=== PATIENT | female | born 1965 | race Caucasian/White ===

== ENCOUNTER 2016-06-24 21:57 | Emergency (ER) | payer SELFPAY ==
[~2016-06-24] VITALS: Ht 162.6 cm; Wt 77.1 kg
[2016-06-24 23:25] LABS: Albumin 3.6 g/dL (3.4-5.0); Anion Gap 5 (5-15); Aspartate Aminotransferase 17 U/L (15-37); BUN/Creatinine Ratio 22.8; Blood Urea Nitrogen 18 mg/dL (7-18); Calcium 8.4 mg/dL (8.5-10.1); Carbon Dioxide 28 mmol/L (21-32); Chloride 104 mmol/L (98-107); GFR African American 99 mL/min; GFR Non-African American 82 mL/min; Glucose 98 mg/dL (74-106); Potassium 4.1 mmol/L (3.5-5.1); Sodium 137 mmol/L (136-145)
[2016-06-24 23:30] LABS: Alkaline Phosphatase 66 U/L (45-117); Bilirubin, Total 0.2 mg/dL (0.2-1.0); Total Protein 7.2 g/dL (6.4-8.2)
[2016-06-24 23:45] LABS: Basophils # (auto) 0.1 uL; Basophils % (auto) 0.7 % (0.0-2.0); Eosinophils # (auto) 0.4 uL; Eosinophils % (auto) 3.2 % (0.0-7.0); Hematocrit 43.6 % (36.0-46.0); Hemoglobin 14.5 g/dL (12.2-16.2); Lymphocytes # (auto) 3.2 uL; Lymphocytes % (auto) 26.1 % (10.0-50.0); Mean Corpuscular Hemoglobin 30.9 pg (28.0-32.0); Mean Corpuscular Hgb Conc. 33.2 g/dL (32.0-36.0); Mean Corpuscular Volume 93.1 fL (80.0-100.0); Mean Platelet Volume 9.7 fL (7.4-10.4); Monocytes # (auto) 0.8 uL; Monocytes % (auto) 6.3 % (0.0-12.0); Neutrophils # (auto) 7.8 uL; Neutrophils % (auto) 63.7 % (37.0-80.0); Platelet Count (auto) 350 10^3/uL (140-450); Red Cell Distribution Width 13.6 % (11.6-16.0); White Blood Cell 12.3 10^3/uL (4.4-10.8)
[2016-06-25 02:30] LABS: Urine Bilirubin Negative (Negative); Urine Color Yellow (Yellow); Urine Glucose Normal (Normal); Urine Hyaline Cast FEW /lpf (0 - 2); Urine Ketone Negative (Negative); Urine Mucus FEW (None Seen); Urine Nitrite Negative (Negative); Urine RBC 15 /hpf (0 - 4); Urine Squamous Epithelial Cell MOD /hpf (<5); Urine Urobilinogen Normal (Negative)
[2016-06-25 02:33] LABS: Urine Blood 2+ /uL (Negative)
[2016-06-25 04:18] VITALS: BP 152/88
== END 2016-06-25 09:09 | disposition home or self-care (01) ==
LOC: ER 22:00
DX: K64.9 Unspecified hemorrhoids (principal); N39.0 Urinary tract infection, site not specified; I10 Essential (primary) hypertension; M19.90 Unspecified osteoarthritis, unspecified site; F17.210 Nicotine dependence, cigarettes, uncomplicated; R05 Cough; R07.9 Chest pain, unspecified; Z90.49 Acquired absence of other specified parts of digestive tract
CPT/HCPCS: 36415; 80053; 81001; 81025; 84484; 85025; 93005

== ENCOUNTER 2016-09-03 10:38 | Observation (INO) | payer SELFPAY ==
[~2016-09-03] VITALS: Ht 162.6 cm; Wt 81.6 kg
[2016-09-03] MEDS ORDERED: SODIUM CHLORIDE 0.9% 1,000 ML IVB ONE (11:09)
[2016-09-03 11:44] LABS: Basophils # (auto) 0.1 uL; Basophils % (auto) 0.7 % (0.0-2.0); CONDITION Y; Eosinophils # (auto) 0.4 uL; Eosinophils % (auto) 3.7 % (0.0-7.0); Hematocrit 41.9 % (36.0-46.0); Hemoglobin 14.3 g/dL (12.2-16.2); Lymphocytes # (auto) 2.2 uL; Lymphocytes % (auto) 20.6 % (10.0-50.0); Mean Corpuscular Hemoglobin 31.9 pg (28.0-32.0); Mean Corpuscular Hgb Conc. 34.2 g/dL (32.0-36.0); Mean Corpuscular Volume 93.1 fL (80.0-100.0); Mean Platelet Volume 8.9 fL (7.4-10.4); Monocytes # (auto) 0.9 uL; Monocytes % (auto) 8.1 % (0.0-12.0); Neutrophils # (auto) 7.2 uL; Neutrophils % (auto) 66.9 % (37.0-80.0); Platelet Count (auto) 316 10^3/uL (140-450); Red Cell Distribution Width 13.5 % (11.6-16.0); White Blood Cell 10.8 10^3/uL (4.4-10.8)
[2016-09-03 11:58] LABS: INR 0.92 (0.9-1.15); Partial Thromboplastin Time 26.9 sec (22.64-33.71)
[2016-09-03 12:11] LABS: Albumin 3.1 g/dL (3.4-5.0); BUN/Creatinine Ratio 24.1; Bilirubin, Total 0.4 mg/dL (0.2-1.0); Calcium 8.2 mg/dL (8.5-10.1); Magnesium 2.1 mg/dL (1.6-2.6); Potassium 3.7 mmol/L (3.5-5.1); Total Protein 6.3 g/dL (6.4-8.2)
[2016-09-03 12:46] LABS: Urine Bilirubin Negative (Negative); Urine Blood Negative /uL (Negative); Urine Color Yellow (Yellow); Urine Glucose Normal (Normal); Urine Ketone Negative (Negative); Urine Mucus FEW (None Seen); Urine RBC 11 /hpf (0 - 4); Urine Squamous Epithelial Cell FEW /hpf (<5); Urine Urobilinogen Normal (Negative); Urine pH 5.5 (5.0-8.0)
[2016-09-03 12:48] LABS: Urine Nitrite POSITIVE (Negative)
[2016-09-03] MEDS ORDERED: cefTRIAXone 1GM/50ML D5W 50 ML IV ONE (13:00)
[2016-09-03] MEDS ORDERED: KETOROLAC TROMETH 30 MG/ML 1ML VIAL IV ONE (13:00)
[2016-09-03 15:14] VITALS: BP 106/60
== END 2016-09-03 15:57 | disposition home or self-care (01) | DRG 690 ==
LOC: ER 10:38 → OVERFLOW 11:10 → ER 15:57
PROVIDERS: ADMIT Family Medicine; ATTEND Family Medicine
DX: N39.0 Urinary tract infection, site not specified (principal); M79.1 Myalgia; R42 Dizziness and giddiness; F41.9 Anxiety disorder, unspecified; F17.210 Nicotine dependence, cigarettes, uncomplicated
CPT/HCPCS: 36415; 70450; 71010; 80053; 80307; 81001; 82962; 83605; 83735; 84484; 85025; 85610; 85730; 87040; 93005; 96361; 96365; 96375; 99285; G0378; J0696; J1885; J7030

== ENCOUNTER 2018-01-11 06:07 | Emergency (ER) | payer MEDICAID, OTHER ==
[~2018-01-11] VITALS: Ht 162.6 cm; Wt 77.1 kg
[2018-01-11 06:09] VITALS: BP 143/95
[2018-01-11] MEDS ORDERED: KETOROLAC TROMETH 60MG/2ML VIAL IM ONE (07:30)
== END 2018-01-11 07:34 | disposition home or self-care (01) ==
LOC: ER 06:07
DX: K04.7 Periapical abscess without sinus (principal); F17.210 Nicotine dependence, cigarettes, uncomplicated
CPT/HCPCS: 96372; 99283; J1885

== ENCOUNTER 2018-01-27 06:38 | Emergency (ER) | payer MEDICAID ==
[~2018-01-27] VITALS: Ht 162.6 cm; Wt 77.1 kg
[2018-01-27 07:17] LABS: Basophils # (auto) 0.1 uL; Basophils % (auto) 1.2 % (0.0-2.0); Eosinophils # (auto) 0.3 uL; Eosinophils % (auto) 4.4 % (0.0-7.0); Hematocrit 39.7 % (36.0-46.0); Hemoglobin 13.4 g/dL (12.2-16.2); Lymphocytes % (auto) 26.9 % (10.0-50.0); Mean Corpuscular Hemoglobin 31.4 pg (28.0-32.0); Mean Corpuscular Hgb Conc. 33.9 g/dL (32.0-36.0); Mean Corpuscular Volume 92.8 fL (80.0-100.0); Monocytes # (auto) 0.7 uL; Monocytes % (auto) 9.2 % (0.0-12.0); Neutrophils # (auto) 4.3 uL; Neutrophils % (auto) 58.3 % (37.0-80.0); Platelet Count (auto) 273 10^3/uL (140-450); Red Blood Cells 4.28 10^6/uL (4.0-5.20); Red Cell Distribution Width 13.1 % (11.8-14.3); White Blood Cell 7.4 10^3/uL (4.4-10.8)
[2018-01-27 07:33] LABS: Alanine Aminotransferase 27 U/L (13-56); Albumin 3.1 g/dL (3.4-5.0); Anion Gap 7 (5-15); Aspartate Aminotransferase 14 U/L (15-37); BUN/Creatinine Ratio 17.4; Blood Urea Nitrogen 15 mg/dL (7-18); Calcium 8.3 mg/dL (8.5-10.1); Carbon Dioxide 24 mmol/L (21-32); Chloride 107 mmol/L (98-107); GFR African American 89 mL/min; GFR Non-African American 73 mL/min; Glucose 112 mg/dL (74-106); Magnesium 2.1 mg/dL (1.6-2.6); Potassium 3.9 mmol/L (3.5-5.1); Sodium 138 mmol/L (136-145)
[2018-01-27 07:38] LABS: Alkaline Phosphatase 69 U/L (45-117); Bilirubin, Total 0.3 mg/dL (0.2-1.0); Total Protein 6.6 g/dL (6.4-8.2)
[2018-01-27 07:55] LABS: INR 0.88 (0.9-1.15); Partial Thromboplastin Time 25.9 sec (23.78-33.04); Prothrombin Time 9.5 sec (9.27-12.13)
[2018-01-27 10:05] VITALS: BP 137/89
== END 2018-01-27 10:05 | disposition home or self-care (01) ==
LOC: ER 06:38
DX: M79.18 Myalgia, other site (principal); M79.602 Pain in left arm; F17.210 Nicotine dependence, cigarettes, uncomplicated; R42 Dizziness and giddiness; R11.0 Nausea
CPT/HCPCS: 36415; 72125; 80053; 83735; 83880; 84443; 84484; 84702; 85025; 85379; 85610; 85730; 93005

== ENCOUNTER 2018-04-27 22:08 | Emergency (ER) | payer MEDICAID ==
[~2018-04-27] VITALS: Ht 162.6 cm; Wt 77.1 kg
[2018-04-28] VITALS: BP 171/90
[2018-04-28] MEDS ORDERED: TETANUS-DIPTH-ACEL PERTUSSIS 0.5ML SYRG IM ONE (00:30)
[2018-04-28] MEDS ORDERED: HYDROcodone-ACET 7.5/325MG TAB PO ONE (00:30)
[2018-04-28] MEDS ORDERED: cefTRIAXone SOD 1,000 MG VL IM ONE (00:30)
== END 2018-04-28 01:14 | disposition home or self-care (01) ==
LOC: ER 22:08
DX: S60.032A Contusion of left middle finger without damage to nail, initial encounter (principal); A35 Other tetanus; F17.210 Nicotine dependence, cigarettes, uncomplicated; W22.8XXA Striking against or struck by other objects, initial encounter; Y93.89 Activity, other specified; Y92.091 Bathroom in other non-institutional residence as the place of occurrence of the external cause; Y99.8 Other external cause status
CPT/HCPCS: 29130; 73140; 90471; 90715; 96372; 99283; J0696

== ENCOUNTER 2018-05-17 15:12 | Emergency (ER) | payer MEDICAID ==
[~2018-05-17] VITALS: Ht 162.6 cm; Wt 79.4 kg
[2018-05-17 15:21] VITALS: BP 136/87
[2018-05-17] MEDS ORDERED: ASPirin 81 mg TAB PO ONE (15:30)
[2018-05-17 16:07] LABS: Alanine Aminotransferase 26 U/L (13-56); Albumin 3.5 g/dL (3.4-5.0); Aspartate Aminotransferase 15 U/L (15-37); Blood Urea Nitrogen 13 mg/dL (7-18); Calcium 8.3 mg/dL (8.5-10.1); Carbon Dioxide 26 mmol/L (21-32); GFR African American 95 mL/min; GFR Non-African American 79 mL/min; Glucose 106 mg/dL (74-106)
[2018-05-17 16:10] LABS: Anion Gap 6 (5-15); Basophils # (auto) 0.1 uL; Bilirubin, Total 0.2 mg/dL (0.2-1.0); Chloride 109 mmol/L (98-107); Eosinophils # (auto) 0.1 uL; Eosinophils % (auto) 1.3 % (0.0-7.0); Hematocrit 42.9 % (36.0-46.0); Hemoglobin 14.5 g/dL (12.2-16.2); Lymphocytes # (auto) 1.1 uL; Mean Corpuscular Hemoglobin 31.2 pg (28.0-32.0); Mean Corpuscular Hgb Conc. 33.9 g/dL (32.0-36.0); Monocytes # (auto) 0.8 uL; Monocytes % (auto) 12.6 % (0.0-12.0); Neutrophils # (auto) 4.3 uL; Neutrophils % (auto) 67.1 % (37.0-80.0); Nucleated Red Blood Cells % 0.1 %; Platelet Count (auto) 247 10^3/uL (140-450); Potassium 3.8 mmol/L (3.5-5.1); Red Blood Cells 4.66 10^6/uL (4.0-5.20); Red Cell Distribution Width 12.9 % (11.8-14.3); Sodium 141 mmol/L (136-145); Total Protein 7.2 g/dL (6.4-8.2); White Blood Cell 6.4 10^3/uL (4.4-10.8)
[2018-05-17 16:12] LABS: Alkaline Phosphatase 73 U/L (45-117)
== END 2018-05-17 17:14 | disposition home or self-care (01) ==
LOC: ER 15:14
DX: J20.9 Acute bronchitis, unspecified (principal); R07.89 Other chest pain; M06.9 Rheumatoid arthritis, unspecified; Z90.49 Acquired absence of other specified parts of digestive tract; Z98.51 Tubal ligation status
CPT/HCPCS: 36415; 71046; 80053; 83735; 84484; 85025; 93005

== ENCOUNTER 2018-07-23 02:34 | Emergency (ER) | payer MEDICAID ==
[~2018-07-23] VITALS: Ht 162.6 cm; Wt 81.6 kg
[2018-07-23 02:41] VITALS: BP 152/100
== END 2018-07-23 04:17 | disposition left against medical advice (07) ==
LOC: ER 02:36
DX: K08.89 Other specified disorders of teeth and supporting structures (principal); Z53.21 Procedure and treatment not carried out due to patient leaving prior to being seen by health care provider

== ENCOUNTER 2019-02-06 07:05 | Emergency (ER) | payer MEDICAID ==
[~2019-02-06] VITALS: Ht 162.6 cm; Wt 81.6 kg
[2019-02-06 07:17] VITALS: BP 139/88
[2019-02-06] MEDS ORDERED: KETOROLAC TROMETH 60MG/2ML VIAL IM ONE (07:45)
== END 2019-02-06 08:31 | disposition home or self-care (01) ==
LOC: ER 07:05
DX: M50.10 Cervical disc disorder with radiculopathy, unspecified cervical region (principal); M19.90 Unspecified osteoarthritis, unspecified site
CPT/HCPCS: 72040; 96372; 99283; J1885